=== PATIENT | female | born 1990 | race Caucasian/White ===

== ENCOUNTER 2022-05-09 06:13 | Day surgery (SDC) | payer OTHER, SELFPAY ==
[2022-05-09] VITALS (14 sets, daily range): BP systolic 89–115; BP diastolic 59–83; PULSE 77–106; RESP 16; TEMP 36.1–36.4; O2SAT 94–100; BMI 34.4
[2022-05-09] MEDS: LACTATED RINGERS 1000 ML 1,000 ML 100 ML IV ×2 (06:10→09:08)
[2022-05-09 06:39] LABS: HCG Qualitative* Negative (Negative)
[2022-05-09] MEDS: SODIUM CHLORIDE 0.9 % (FLUSH) 10 ML SYRINGE IVF (06:43)
--- NOTE | 2022-05-09 07:03 | SUR.PREOP ---
I have reviewed and concur with all assessments, medication administration, and documentation completed by Gale Noriega, student nurse.?
[2022-05-09] MEDS: CEFAZOLIN 1 GM inj IVP (07:51)
--- NOTE | 2022-05-09 07:56 | W.ANESCHARGE ---
Anesthesia Charges Start Date/Time Anesthesia Start Date: 05/09/22 Anesthesia Start Time: 07:43 Stop Date/Time Anesthesia Stop Date: 05/09/22 Anesthesia Stop Time: 08:50
[2022-05-09] MEDS: BUPIVACAINE 0.5% 30 ML INJECTION (08:18)
--- NOTE | 2022-05-09 08:41 | P.GSOP_ITS ---
Operative Note Date of procedure: 05/09/22 Pre-op diagnosis: Biliary colic Post-op diagnosis: Same Type of Procedure: Laparoscopic cholecystectomy Indications: Patient is a 31-year-old female who presented to clinic with symptomatic right upper quadrant abdominal pain. Workup was performed with clinical history and findings consistent with biliary colic. Risks and benefits of operative intervention were discussed at length with the patient. Risks included but was not limited to: Bleeding, infection, risk of damage to surrounding structures, possible need for additional procedures, possible need to convert to an open operation and postoperative complications such as pneumonia, pulmonary emboli or PR. All questions and concerns were addressed with the patient agreeing to proceed. Procedure Description: After discussing the risks and benefits of the procedure, the patient signed informed consent.? The operative site was marked and the patient was brought to the operating room and placed on the operating table in supine position.? Care was taken to pad the patient's pressure points.?? The patient was then intubated by anesthesia.?? The operative site was then prepped and draped in the usual sterile fashion.? A time-out was then performed. Entrance to the abdomen was gained via a 5 mm Visiport in the left upper quadrant. The abdomen was insufflated and briefly surveyed for signs of injury. There was none. 11 mm umbilical port was placed as well as 2 working ports along the right costal margin. Patient was then placed in reverse Trendelenburg position with the right side up. The gallbladder fundus was grasped and retracted cephalad. The infundibulum was grasped. A combination of hook c autery and blunt dissection was used to carefully dissect out the cystic duct and artery until they could clearly be seen entering the gallbladder without any intervening structures. The gallbladder was dissected off the cystic plate to achieve the critical view. Once this was achieved the cystic duct and artery were each clipped with 2 clips proximally and 1 clip distally and transected with the scissors. The gallbladder was then taken off of the liver bed. A larger liver was seen within the gallbladder fossa. A single clip was applied the proximal aspect before it was ligated with cautery. The gallbladder was then removed from the abdomen using an Endo-Catch bag. The gallbladder bed was surveyed for hemostasis which was excellent. The umbilical port fascia was closed with 0 Vicryl. All other ports were removed under direct visualization. The skin was closed with absorbable subcuticular suture. Instrument sponge and needle counts were correct at the end of the case. The patient was then woken and transferred to the PACU in stable condition. ? Sterile dressings were then applied. ? The patient was then woken and transported to the recovery area in stable condition. ? The patient tolerated the procedure well. Findings: Cholelithiasis. Anesthesia: GETA Surgeon: Elke Winston MD Estimated blood loss (mL): 2 Specimen: Gallbladder Condition: stable
--- NOTE | 2022-05-09 08:57 | W.ANESCHARGE ---
Anesthesia Charges Start Date/Time Anesthesia Start Date: 05/09/22 Anesthesia Start Time: 07:43 Stop Date/Time Anesthesia Stop Date: 05/09/22 Anesthesia Stop Time: 08:50
[2022-05-09] MEDS: fentaNYL 100 MCG/2 ML inj 50 MCG IVP ×2 (09:03→09:14)
[2022-05-09] MEDS: ACETAMINOPHEN 325 MG TABLET 650 MG PO (09:41)
[2022-05-09] MEDS: OXYCODONE 5 MG TABLET PO (09:42)
== END 2022-05-09 10:48 | disposition home or self-care (01) ==
PROVIDERS: Anesthesiology; PCP Surgery; Visit Provider Surgery
PROC: 0FT44ZZ Resection of Gallbladder, Percutaneous Endoscopic Approach (ICD-10-PCS; CPT 47562; principal; 2022-05-09 07:30)
DX: K80.10 Calculus of gallbladder with chronic cholecystitis without obstruction (principal)
CPT/HCPCS: 47562; 00790; 84703; 88304; A9270; J0330; J0690; J1100; J1885; J2250; J2405; J2704; J2710; J3010; J3475; J3490; J7120